=== PATIENT | male | born 1945 | race Caucasian/White ===

== ENCOUNTER 2019-10-17 11:07 | Outpatient (CLI) | payer MEDICARE, SELFPAY ==
--- NOTE | ~2019-10-17 | CT_ITS ---
EXAMINATION: CT chest wo con DATE: 10/17/2019 11:54 INDICATION: Solitary pulmonary nodule TECHNIQUE: Computed tomography (CT) of the chest was performed without intravenous contrast. The dose -length product (DLP) was 244.02 mGy-cm. Automated exposure control and iterative reconstruction tech nique were employed. COMPARISON: 03/02/2019, 02/15/2019, 09/29/2018 FINDINGS: There is a stable 1.5 x 1.0 cm nodule of the left lung base which did not demonstrate FDG u ptake on the comparison PET/CT. Small stable nodules in the right lung apex are consistent with scarr ing and old granulomatous disease. There is mild emphysema. No pleural effusion or pneumothorax is id entified. A stable area of scarring is noted inferiorly in the right upper lobe. The lungs are free o f focal airspace opacities. No pathologically enlarged thoracic lymph nodes are identified. The heart size is normal. Coronary artery atherosclerosis is noted. There is mild bilateral gynecomastia. Ther e is moderate thoracic spondylosis. IMPRESSION: 1. Left lower lobe nodule without significant change, benign by biopsy. Reviewed, dictated and finalized at location B.
== END 2019-10-17 11:08 | disposition home or self-care (01) ==
PROVIDERS: PCP Family Medicine; Visit Provider Nurse Practitioner Family
DX: R91.1 Solitary pulmonary nodule (principal)
CPT/HCPCS: 71250

== ENCOUNTER 2019-12-21 02:10 | Outpatient (CLI) | payer MEDICARE, SELFPAY ==
[2019-12-21 19:52] LABS: SARS-CoV-2 RNA PCR Negative
== END 2019-12-21 02:11 | disposition home or self-care (01) ==
LOC: ANHCOVIDDT 02:10
PROVIDERS: PCP Family Medicine; Visit Provider Internal Medicine Gastroenterology
DX: Z01.812 Encounter for preprocedural laboratory examination (principal); Z20.828 Contact with and (suspected) exposure to other viral communicable diseases
CPT/HCPCS: 87635; C9803; U0003

== ENCOUNTER 2019-12-24 00:24 | Day surgery (SDC) | payer MEDICARE, SELFPAY ==
[2019-12-18 15:59] VITALS: BMI 26.4
[2019-12-24 11:52] VITALS: BP 133/84; PULSE 81; RESP 17; TEMP 36.7; O2SAT 97; BMI 25.0
[2019-12-24] MEDS: LACTATED RINGERS 1,000 ML 150 ML IV CONT (12:07)
--- NOTE | 2019-12-24 12:25 | WPDANESEPPF ---
Anes - Initial Pre Proc Eval Procedure: Operation Date: 12/24/19 13:00 Proposed Procedures p Screening Colonoscopy - Pete Rubi DO Date/Time: 12/24/19 12:25 Surgeon: Pete Rubi DO Pre Op Diagnosis: neoplasm screening Patient Data Age: 74 Gender: M Height: 5 ft 8 in Weight: 74.7 kg Last Vital Signs Temp 98.1 F 12/24/19 11:52 Pulse 81 12/24/19 11:52 Resp 17 12/24/19 11:52 BP 133/84 12/24/19 11:52 Pulse Ox 97 12/24/19 11:52 Allergies Allergy/AdvReac Type Severity Reaction Status Date / Time sesame seed Allergy Severe Anaphylaxis Verified 12/24/19 11:47 Sulfa (Sulfonamide Allergy Severe Anaphylactic Verified 12/24/19 11:47 Antibiotics) Shock tobramycin Allergy Severe Rash Verified 12/24/19 11:47 Home Medications Medication Instructions Recorded Confirmed Type aspirin 81 mg tablet,delayed 81 mg PO HS 01/26/19 12/24/19 History release famotidine 20 mg tablet 20 mg PO DAILY 01/26/19 12/24/19 History gabapentin 300 mg capsule 300 mg PO DAILY PRN 01/26/19 12/24/19 History Artificial Tears (cmc) 1 drp OPHTHALMIC (EYE) 4-6XD PRN 03/02/19 12/24/19 History fluorometholone 1 drp OPHTHALMIC (EYE) DAILY PRN 03/02/19 12/24/19 History zolpidem 10 mg tablet 10 mg PO HS PRN #90 tablet 03/26/19 12/24/19 Rx atorvastatin 40 mg PO HS 12/18/19 12/24/19 History folic acid 1 mg PO DAILY 12/18/19 12/24/19 History losartan 50 mg PO DAILY 12/18/19 12/24/19 History loratadine [Claritin] 10 mg PO PRN PRN 12/24/19 12/24/19 History olopatadine [Pazeo] 0.7 drp OPHTHALMIC (EYE) PRN PRN 12/24/19 12/24/19 History prednisone 5 mg PO PRN PRN 12/24/19 12/24/19 History Patient hx anesthesia problems: none Family hx anesthesia problems: none PMFSH Past Medical History Medical History Arthritis History of pneumothorax 02/2018 - s/p lung nodule biopsy HTN (hypertension) Rectal polyp Shingles Surgical History Surgical History History of appendectomy 1965 History of cataract surgery b/l - 2009 History of tonsillectomy Family History Family History Sibling Prostate carcinoma Other Family history of coronary artery disease Social History Social History Smoking packs per day: 1 Smoking cigarettes per day: 20.0 Years smoked: 40 Smoking pack-years: 40.00 Smoking status: Former smoker Tobacco type: cigarettes Second hand tobacco smoke exposure: No Smoking end date: 02/08/04 Alcohol intake: current Drinks per week: 4 Substance use: never Substance use type: does not use Living arrangements: alone Gender identity (if verbalized by the patient): Male Spiritual care concerns: No Agree to blood products: Yes Anes - Eval Final PreProcedure Day of Procedure 12/24/19 12:25 Patient weight: normal Heart: regular rate and rhythm Lungs: clear to auscultation Airway: Mallampati scale class II Neurological: alert and oriented Last oral intake: >/= 8 hours ASA classification: III Emergent: no Anesthetic plan: proceed Anesthesia type and monitoring: general GIVS and standard monitoring Informed Consent: The patient's anesthetic plan and its attendant risks and benefits were discussed with the patient/family/POA. Questions were solicited and answers provided to the satisfaction of the patient/family/POA.
--- NOTE | 2019-12-24 13:44 | PM.IMHP ---
H&P: HPI History of Present Illness Date/Time: 12/24/19 13:44 Chief complaint: neoplasm screening Narrative: Reason for visit is colonoscopy. This very pleasant gentleman seen in consultation request of the primary physician. Impression: Screening and surveillance colonoscopy. The patient has a history adenomatous colon polyps. Pneumothorax. HTN. RA. Cerebral aneurysm. Polio. Recommendation: Colonoscopy. History: This very pleasant gentleman is here for screening and surveillance colonoscopy. He has history adenomatous colon polyps. GI review systems is negative. Physical examination: General: very pleasant patient in no acute distress. HEENT: Head was normocephalic sclerae is clear mouth without masses neck was supple. Heart: Rate rhythm regular without S3 or S4. Lungs: CTA. Abdomen: Soft with no guarding or rigidity. Bowel sounds were active. Neurologic: Cranial nerves 2 through 12 intact. No focal defects. No clonus. Musculoskeletal system: Revealed no joint tenderness or swelling no muscle atrophy. Extremities: Reveal no significant edema. Skin: Warm and dry with normal turgor. Mental status: intact. Patient is alert and oriented. Review of Systems Review of Systems: All systems reviewed & are unremarkable except as noted in HPI and below PMFSH Past Medical History Medical History Arthritis History of pneumothorax 02/2018 - s/p lung nodule biopsy HTN (hypertension) Rectal polyp Shingles Surgical History Surgical History History of appendectomy 1965 History of cataract surgery b/l - 2009 History of tonsillectomy Family History Family History Sibling Prostate carcinoma Other Family history of coronary artery disease Social History Social History Smoking packs per day: 1 Smoking cigarettes per day: 20.0 Years smoked: 40 Smoking pack-years: 40.00 Smoking status: Former smoker Tobacco type: cigarettes Second hand tobacco smoke exposure: No Smoking end date: 02/08/04 Alcohol intake: current Drinks per week: 4 Substance use: never Substance use type: does not use Living arrangements: alone Gender identity (if verbalized by the patient): Male Spiritual care concerns: No Agree to blood products: Yes Meds Home Medications and Allergies Home Medications Medication Instructions Recorded Confirmed Type aspirin 81 mg tablet,delayed 81 mg PO HS 01/26/19 12/24/19 History release famotidine 20 mg tablet 20 mg PO DAILY 01/26/19 12/24/19 History gabapentin 300 mg capsule 300 mg PO DAILY PRN 01/26/19 12/24/19 History Artificial Tears (cmc) 1 drp OPHTHALMIC (EYE) 4-6XD PRN 03/02/19 12/24/19 History fluorometholone 1 drp OPHTHALMIC (EYE) DAILY PRN 03/02/19 12/24/19 History zolpidem 10 mg tablet 10 mg PO HS PRN #90 tablet 03/26/19 12/24/19 Rx atorvastatin 40 mg PO HS 12/18/19 12/24/19 History folic acid 1 mg PO DAILY 12/18/19 12/24/19 History losartan 50 mg PO DAILY 12/18/19 12/24/19 History loratadine [Claritin] 10 mg PO PRN PRN 12/24/19 12/24/19 History olopatadine [Pazeo] 0.7 drp OPHTHALMIC (EYE) PRN PRN 12/24/19 12/24/19 History prednisone 5 mg PO PRN PRN 12/24/19 12/24/19 History Allergies Allergy/AdvReac Type Severity Reaction Status Date / Time sesame seed Allergy Severe Anaphylaxis Verified 12/24/19 11:47 Sulfa (Sulfonamide Allergy Severe Anaphylactic Verified 12/24/19 11:47 Antibiotics) Shock tobramycin Allergy Severe Rash Verified 12/24/19 11:47 Vital Signs Vital Signs - 24 hr 12/24/19 11:52 Temperature 36.7 C Pulse Rate 81 Respiratory Rate 17 Blood Pressure 133/84 Pulse Oximetry 97
[2019-12-24 14:09] VITALS: BP 99/64; PULSE 65; RESP 17; O2SAT 97
[2019-12-24 14:19] VITALS: BP 133/80; PULSE 85; RESP 18; O2SAT 100
[2019-12-24 14:29] VITALS: BP 142/83; PULSE 71; RESP 21; O2SAT 100
== END 2019-12-24 14:41 | disposition home or self-care (01) ==
PROVIDERS: PCP Family Medicine; Visit Provider Internal Medicine Gastroenterology
PROC: 0DJD8ZZ Inspection of Lower Intestinal Tract, Via Natural or Artificial Opening Endoscopic (ICD-10-PCS; CPT 45378; principal; 2019-12-24 13:00)
DX: Z12.11 Encounter for screening for malignant neoplasm of colon (principal); K57.30 Diverticulosis of large intestine without perforation or abscess without bleeding; K64.8 Other hemorrhoids; Z86.010 Personal history of colon polyps; I10 Essential (primary) hypertension; Z79.82 Long term (current) use of aspirin; Z87.891 Personal history of nicotine dependence; M06.9 Rheumatoid arthritis, unspecified; Z86.12 Personal history of poliomyelitis
CPT/HCPCS: G0105; J2704; J7120

== ENCOUNTER 2021-04-10 12:16 | Outpatient (CLI) | payer MEDICARE, SELFPAY ==
--- NOTE | ~2021-04-10 | XR_ITS ---
XR lumbar spine 2-3V 04/10/2021 12:35 Indication: Low back pain Procedure: 3 views lumbar spine Comparison: No prior studies for comparison. Findings: There is disc narrowing at all lumbar levels. There is grade 1 degenerative spondylolisthes is at L4-5 secondary to facet hypertrophy. There is moderate facet degenerative change at L3-4 throug h L5-S1. No acute fracture, subluxation or dislocation. There is atherosclerosis. Sacral foramen are symmetric. There is moderate osteoarthritis of the hips. Impression: 1: Moderate lumbar spondylosis. Reviewed, dictated and finalized at location A. 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
== END 2021-04-10 12:17 | disposition home or self-care (01) ==
LOC: ANHIMG 12:20
PROVIDERS: PCP Family Medicine; Visit Provider Family Medicine
DX: M47.896 Other spondylosis, lumbar region (principal)
CPT/HCPCS: 72100

== ENCOUNTER → 2021-12-30 11:37 | Outpatient (CLI) | payer MEDICARE, SELFPAY ==
--- NOTE | ~2021-12-30 | XR_ITS ---
EXAM: XR femur LT min 2V DATE: 12/30/2021 11:49 HISTORY: M79.652 - Pain in left thigh . COMPARISON: None available. FINDINGS: Normal mineralization. No fracture or dislocation. No lytic or blastic lesion. Moderate le ft hip osteoarthritis. Mild left knee osteoarthritis. No erosion or periosteal change. Scattered vasc ular calcifications. IMPRESSION: No acute osseous finding the left thigh. Reviewed, dictated and finalized at location K. TROTYPE MOLDER
== END ==
PROVIDERS: PCP Family Medicine; Visit Provider Family Medicine
DX: M79.652 Pain in left thigh (principal); S79.922A Unspecified injury of left thigh, initial encounter
CPT/HCPCS: 73552

== ENCOUNTER 2022-10-27 10:22 | Outpatient (CLI) | payer MEDICARE, SELFPAY ==
[2022-10-27 11:44] LABS: Basophils Absolute Auto 0.1 K/mm3 (0.0-0.1); Basophils Percent Auto 1.2 % (0.2-1.2); Eosinophils Absolute Auto 0.5 K/mm3 (0-0.3); Eosinophils Percent Auto 5.9 % (0-4.4); Hematocrit 46.2 % (42.0-52.0); Hemoglobin 15.6 g/dL (14.0-18.0); Immature Granulocyte Absolute 0.02 K/mm3 (0.00-0.031); Immature Granulocyte Percent A 0.3 % (0-0.5); Lymphocytes Absolute Auto 1.42 K/mm3 (0.9-3.2); Lymphocytes Percent Auto 18.2 % (18.3-44.2); Mean Corpuscular HGB Conc 33.8 g/dl (32-36); Mean Corpuscular Hemoglobin 31.4 pg (26-34); Mean Platelet Volume 9.5 fl (7.4-10.4); Monocytes Absolute Auto 0.7 K/mm3 (0.1-0.6); Monocytes Percent Auto 9.1 % (2.6-8.5); Neutrophils Absolute Auto 5.1 K/mm3 (1.3-6.7); Neutrophils Percent Auto 65.3 % (45.5-73.1); Platelet Count Result 159 k/mm3 (150-375); Red Blood Count 4.97 M/mm3 (4.6-6.20); Red Cell Distribution Width 13.6 % (11.5-14.5); White Blood Count 7.8 K/mm3 (4.5-10.0)
[2022-10-27 11:48] LABS: Alanine Aminotransferase 23 U/L (6-50); Albumin Level 3.8 g/dL (3.5-5.1); Alkaline Phosphatase 81 U/L (38-126); Anion Gap 0 mmol/L (8-16); Aspartate Amino Transferase 37 U/L (17-59); Bilirubin,Total 0.9 mg/dL (0.2-1.3); Blood Urea Nitrogen 22 mg/dL (9-20); Calcium 9.3 mg/dL (8.4-10.2); Carbon Dioxide 34 mmol/L (22-30); Chloride 102 mmol/L (98-107); Cholesterol 130 mg/dL (0-200); Estimated Glomerular Filt Rate > 60; Glucose 91 mg/dL (65-110); HDL Direct 30 mg/dL; Sodium 136 mmol/L (137-145); Triglycerides 152 mg/dL (<150)
[2022-10-27 12:07] LABS: LDL Cholesterol Direct 68 mg/dL
[2022-10-27 13:23] LABS: Hemoglobin A1C 5.2 % (<5.7)
[2022-10-27 16:34] LABS: Vitamin D 25 Hydroxy 62.8 ng/mL
== END 2022-10-27 10:23 | disposition home or self-care (01) ==
PROVIDERS: PCP Family Medicine; Visit Provider Nurse Practitioner Family
DX: E53.8 Deficiency of other specified B group vitamins (principal); I10 Essential (primary) hypertension; Z13.1 Encounter for screening for diabetes mellitus; Z13.21 Encounter for screening for nutritional disorder; Z13.220 Encounter for screening for lipoid disorders; Z13.29 Encounter for screening for other suspected endocrine disorder
CPT/HCPCS: 36415; 80053; 80061; 82306; 82607; 83036; 84443; 85025

== ENCOUNTER 2022-11-23 00:42 | Day surgery (SDC) | payer MEDICARE, SELFPAY ==
[2022-11-11 10:56] VITALS: BMI 27.0
[2022-11-23 09:33] VITALS: BP 150/84; PULSE 76; RESP 16; TEMP 36.1; O2SAT 96; BMI 26.5
[2022-11-23] MEDS: LACTATED RINGERS 1,000 ML 150 ML IV CONT (09:43)
--- NOTE | 2022-11-23 09:51 | WPDHPUPDATE1 ---
History and Physical Update Update Date/Time: 11/23/22 09:51 History and Physical has been reviewed, including an updated exam of the patient. There are NO changes in the patient's condition. Risks, benefits, and alternatives have been discussed and questions answered. Patient agrees to proceed with procedure.
[2022-11-23 10:09] VITALS: BP 111/69; PULSE 60; RESP 14; O2SAT 97
[2022-11-23 10:19] VITALS: BP 129/75; PULSE 69; RESP 22; O2SAT 98
[2022-11-23 10:29] VITALS: BP 132/83; PULSE 67; RESP 16; O2SAT 100
== END 2022-11-23 10:53 | disposition home or self-care (01) ==
PROVIDERS: PCP Family Medicine; Visit Provider Internal Medicine Gastroenterology
PROC: 0DJ08ZZ Inspection of Upper Intestinal Tract, Via Natural or Artificial Opening Endoscopic (ICD-10-PCS; CPT 43235; principal; 2022-11-23 10:45)
DX: K22.2 Esophageal obstruction (principal); K29.70 Gastritis, unspecified, without bleeding; K21.9 Gastro-esophageal reflux disease without esophagitis; I10 Essential (primary) hypertension; E78.5 Hyperlipidemia, unspecified; M06.9 Rheumatoid arthritis, unspecified; Z87.891 Personal history of nicotine dependence; Z79.82 Long term (current) use of aspirin
CPT/HCPCS: 43249; 43239; 88305; C1726; J2704; J7120

== ENCOUNTER 2023-03-30 14:03 | Emergency (ER) | payer MEDICARE, SELFPAY ==
[2023-03-30 14:09] VITALS: BP 133/82; PULSE 74; RESP 16; TEMP 36.5; O2SAT 97
--- NOTE | 2023-03-30 14:20 | ED.SKABFB ---
HPI - Skin/Abscess/Foreign Bdy General Chief complaint: Extremity Problem,Nontraumatic Stated complaint: R THUMB PAIN/SWELLING Time Seen by Provider: 03/30/23 14:21 Source: patient Mode of arrival: ambulatory Limitations: no limitations History of Present Illness HPI narrative: [age] year male presents with complaint redness, swelling and warmth to distal aspect right thumb. Range of motion and distal neurovascularly intact. Patient reports doing woodworking several days ago and a piece wood under his right thumbnail. States that he was able to remove it and had complications or pain afterwards. Last night noticed pain and swelling, worse today. Patient concern for infection. All systems reviewed and negative except as noted. Related Data Home Medications Medication Instructions Recorded Confirmed aspirin 81 mg tablet,delayed 81 mg PO HS 01/26/19 03/30/23 release famotidine 20 mg tablet 20 mg PO DAILY 01/26/19 03/30/23 carboxymethylcellulose sodium 1 % 1 drp ophthalmic (eye) 4-6XD PRN 03/02/19 03/30/23 eye drops (Artificial Tears Dry Eye(S) (carboxymethylcellulose)) olopatadine 0.1 % eye drops 1 drp ophthalmic (eye) BID PRN 02/28/20 03/30/23 (Pataday Twice Daily Relief) other fluticasone propionate 50 2 spray intranasal DAILY 04/01/20 03/30/23 mcg/actuation nasal spray,suspension (Flonase Allergy Relief) losartan 100 mg tablet 100 mg PO DAILY 04/01/20 03/30/23 hydrochlorothiazide 12.5 mg capsule 12.5 mg PO DAILY 09/29/20 03/30/23 loteprednol etabonate 0.38 % eye 1 drp EACH EYE DAILY 09/29/20 03/30/23 gel drops (Lotemax SM) fexofenadine 60 mg tablet (Rayne 60 mg PO DAILY 04/06/21 03/30/23 Allergy) methotrexate sodium 2.5 mg tablet 7.5 mg PO WEEKLY 04/06/21 03/30/23 rosuvastatin 20 mg tablet 20 mg PO DAILY 10/13/22 03/30/23 Allergies Allergy/AdvReac Type Severity Reaction Status Date / Time sesame seed Allergy Severe Anaphylaxis Verified 03/30/23 14:15 Sulfa (Sulfonamide Allergy Severe Anaphylactic Verified 03/30/23 14:15 Antibiotics) Shock tobramycin Allergy Severe Rash Verified 03/30/23 14:15 Review of Systems Review of Systems: CONSTITUTIONAL: Denies fever, chills, or sweats. EYES: Denies visual changes, redness, or discharge. ENT: Denies rhinorrhea, congestion, sore throat, or otalgia. CARDIOVASCULAR: Denies chest pain, palpitations, or edema. RESPIRATORY: Denies cough or dyspnea. GASTROINTESTINAL: Denies abdominal pain, nausea, vomiting, or diarrhea. GENITOURINARY: Denies dysuria or hematuria. SKIN: Reports redness swelling and pain to right thumb. MUSCULOSKELETAL: Denies back pain, joint pain, or myalgia. NEUROLOGIC: Denies headache, numbness, or weakness. PSYCHIATRIC: Denies anxiety or depression. All other systems reviewed are negative, except as documented in HPI. [facility] Past Medical History Medical History Adenomatous colon polyp Blepharochalasis of eyelid of both eyes Cerebral aneurysm Chronic back pain Environmental allergies Essential (primary) hypertension Food sticks on swallowing GERD without esophagitis High coronary artery calcium score History of pneumothorax (02/2019) 02/2018 - s/p lung nodule biopsy Insomnia Pneumothorax on left Post herpetic neuralgia Pulmonary nodule Rheumatoid arthritis of unspecified site with involvement of other organs and systems Shingles Surgical History Surgical History History of appendectomy (~1965) 1964 History of cataract surgery (~2009) b/l - 2009 History of tonsillectomy (~1950) Family History Family History Sibling Prostate carcinoma Other Family history of coronary artery disease Social History Social History Social History: Caffeine-tea/soda daily Smoking packs per day: 1
== END 2023-03-30 14:22 | disposition home or self-care (01) ==
PROVIDERS: Emergency Provider Nurse Practitioner Family; PCP Family Medicine
DX: L03.011 Cellulitis of right finger (principal); Z87.891 Personal history of nicotine dependence; I10 Essential (primary) hypertension; K21.9 Gastro-esophageal reflux disease without esophagitis; M06.9 Rheumatoid arthritis, unspecified; Z79.82 Long term (current) use of aspirin
CPT/HCPCS: 99213; G0463

== ENCOUNTER 2023-05-05 11:41 | Outpatient (CLI) | payer MEDICARE, SELFPAY ==
--- NOTE | ~2023-05-05 | XR_ITS ---
XR cervical spine 4-5V 05/05/2023 11:56 Indication: Neck pain right shoulder pain Procedure: 4 view cervical spine Comparison: No prior studies for comparison. Findings: There is levoscoliosis. There is severe multilevel facet and uncinate hypertrophy. Lung api johnny are normal. There is degenerative anterolisthesis at C3-4, C4-5 and C5-6. No prevertebral soft ti ssue swelling. No acute fractures identified. Impression: 1: Severe cervical spondylosis. Reviewed, dictated and finalized at location L. Impression: 1: Severe cervical spondylosis.
--- NOTE | ~2023-05-05 | XR_ITS ---
XR shoulder RT min 2V 05/05/2023 11:56 Indication: Right shoulder pain Procedure: 4 views right shoulder Comparison: 06/13/2015 Findings: There is moderate polyarticular osteoarthritis of the right shoulder. Loose bodies are pres ent adjacent to the acromioclavicular and glenohumeral joints. No acute fracture or traumatic malalig nment. Normal mineralization. No soft tissue abnormality. Impression: 1: Moderate polyarticular osteoarthritis. Reviewed, dictated and finalized at location L. Impression: 1: Moderate polyarticular osteoarthritis.
== END 2023-05-05 11:42 ==
PROVIDERS: PCP Family Medicine; Visit Provider Family Medicine
DX: M19.011 Primary osteoarthritis, right shoulder (principal); M43.02 Spondylolysis, cervical region
CPT/HCPCS: 72050; 73030

== ENCOUNTER 2023-09-02 12:25 | Outpatient (CLI) | payer MEDICARE, SELFPAY ==
--- NOTE | ~2023-09-02 | US_ITS ---
EXAMINATION:US venous doppler LE RT INDICATION:Right leg pain TECHNIQUE: Multiple grayscale, color flow and Doppler images of the right lower extremity deep venous systems were obtained and reviewed. COMPARISON:No prior studies for comparison. FINDINGS: The common femoral, superficial femoral and popliteal veins demonstrate normal respiratory variation, augmentation and compressibility. Color flow is also seen within the posterior tibial, pe roneal, greater saphenous and profunda veins. IMPRESSION: 1: No lower extremity deep venous thrombosis. Reviewed, dictated and finalized at location B.
== END 2023-09-02 12:26 | disposition home or self-care (01) ==
LOC: ANHIMG 12:29
PROVIDERS: PCP Family Medicine; Visit Provider Nurse Practitioner Family
DX: M79.661 Pain in right lower leg (principal)
CPT/HCPCS: 93971

== ENCOUNTER 2023-10-21 08:38 | Outpatient (CLI) | payer MEDICARE, SELFPAY ==
--- NOTE | ~2023-10-21 | CT_ITS ---
EXAMINATION: CT abdomen pelvis wo/w con DATE: 10/21/2023 09:49 INDICATION: Hematuria TECHNIQUE: Computed tomography (CT) of the abdomen and pelvis was performed without intravenous contr ast. CT of the abdomen and pelvis was then performed with a total of 130 mL Omnipaque-350 intravenous contrast using a double-bolus technique for simultaneous opacification of the renal parenchyma and r enal collecting system. The dose-length product was 976.16 mGy-cm. COMPARISON: None FINDINGS: Lower lungs are clear. Heart size is normal. Atherosclerotic coronary artery calcifications. No peric ardial or pleural effusion. Liver, gallbladder, spleen, pancreas and bilateral adrenal glands are nor mal. There are bilateral low-attenuation subcentimeter renal cysts. There is a 9 mm intermediate atte nuation lesion in the mid right kidney which appears slightly higher attenuation in the surrounding k idney on the precontrast images suggesting a proteinaceous/hemorrhagic cyst but too small to definiti vely characterize. No urolithiasis. No urothelial irregularities identified at the bilateral renal co llecting systems or ureters which are opacified in their entirety with the exception of the decompres sed distal most right ureter. Prostatomegaly which impresses upon the base of the otherwise normal bl adder. There is moderate colonic diverticulosis with a sigmoid predominance. There is no adjacent in flammatory change to suggest diverticulitis. No bowel obstruction. No free intraperitoneal gas or fl uid. No pathologically enlarged abdominal or pelvic lymphadenopathy. There is calcified atheroscleros is of the aorta and many of the other arteries. Bilateral small fat-containing inguinal hernias. Mode rate lumbar spondylosis. IMPRESSION: 1. 9 mm indeterminate soft tissue density lesion in the right kidney which appears relatively hyperde nse to surrounding kidney on precontrast imaging suggesting a proteinaceous/hemorrhagic cyst but too small to definitively characterize and could not absolutely exclude solid neoplasm. Consider follow-u p pre and postcontrast MRI. 2. No urolithiasis. 3. Moderate sigmoid predominant diverticulosis. 4. Prostatomegaly. Reviewed, dictated and finalized at location B. IMPRESSION: 1. 9 mm indeterminate soft tissue density lesion in the right kidney which appe ars relatively hyperdense to surrounding kidney on precontrast imaging suggesti ng a proteinaceous/hemorrhagic cyst but too small to definitively characterize and could not absolutely exclude solid neoplasm. Consider follow-up pre and pos tcontrast MRI. 2. No urolithiasis. 3. Moderate sigmoid predominant diverticulosis. 4. Prostatomegaly.
[2023-10-21 09:29] LABS: Estimated Glomerular Filt Rate > 60
== END 2023-10-21 08:39 | disposition home or self-care (01) ==
PROVIDERS: PCP Family Medicine; Visit Provider Nurse Practitioner Family
DX: R31.29 Other microscopic hematuria (principal); K57.30 Diverticulosis of large intestine without perforation or abscess without bleeding; N40.0 Benign prostatic hyperplasia without lower urinary tract symptoms
CPT/HCPCS: 74178; Q9967

== ENCOUNTER 2024-05-11 13:41 | Outpatient (CLI) | payer MEDICARE, SELFPAY ==
--- NOTE | ~2024-05-11 | MR_ITS ---
EXAMINATION: MR abdomen wo/w con DATE: 05/11/2024 14:56 INDICATION: Kidney lesion TECHNIQUE: Magnetic resonance imaging (MRI) of the abdomen was performed without and with 16 mL Multi edison intravenous contrast. Sequences included coronal T2-weighted SS-FSE, coronal and axial FS 2D-F IESTA, axial STIR FSE, axial T2-weighted SS-FSE, axial T2-weighted FS SS-FSE, axial diffusion-weighte d SE, axial dual-echo T1-weighted FSPGR, and axial and coronal T1-weighted LAVA. Postcontrast axial T 1-weighted LAVA images were obtained in a time course. Postcontrast coronal T1-weighted LAVA images w ere obtained. COMPARISON: CT dated 10/21/2023 FINDINGS: Heart size is normal. No pericardial or pleural effusion. There are couple subcentimeter T2 hyperinte nse nonenhancing cysts in segment 2A of the liver. Gallbladder, spleen, pancreas and bilateral adrena l glands are normal. There are bilateral simple appearing T2 hyperintense nonenhancing renal cysts, t he largest on the right measuring 9 mm. There is an additional 9 mm T1 hypointense, T2 hypointense no nenhancing complex proteinaceous/hemorrhagic cyst in the right kidney which corresponds to the indete rminate soft tissue density lesion on prior CT. Visualized portions of the bowels are normal. No obst ruction. No pathologically enlarged abdominal or upper pelvic lymphadenopathy. Mild S-shaped curvatur e of the lumbar spine with moderate to severe spondylosis. IMPRESSION: 1. Bilateral renal cysts including a 9 mm complex proteinaceous/hemorrhagic cyst the right kidney whi ch corresponds to the lesion of concern on prior CT. Reviewed, dictated and finalized at location A. IMPRESSION: 1. Bilateral renal cysts including a 9 mm complex proteinaceous/hemorrhagic cys t the right kidney which corresponds to the lesion of concern on prior CT.
--- OUTSIDE RECORDS SUMMARY | 2024-05-11 13:45 | XMS_ITS | Referral Summary ---
Author Organization [facility] [address] Address [address] [place] [address] Care Team Providers Care Engraving Press Operator Name Role Phone Lo Fong MD Primary Care Provider Lo Fong MD Unavailable Fransisco Hart MD Unavailable [phone] Allergies Active Allergy Reactions Criticality Noted Date Comments Sesame Oil Anaphylaxis,Hives,It aylin, Rash High 02/07/1995 Sesame Seed Anaphylaxis,Hives,It aylin, Rash High 02/07/1995 Sulfa (Sulfonamide Antibiotics) Unknown 10/12/2017 Tobramycin Unknown 10/12/2017 Medications methotrexate 2.5 mg tablet Take 3 tablets (7.5 mg total) by mouth once a week Active zolpidem (AMBIEN) 10 mg tabletIndications: Sleep-Onset Insomnia Take 1 tablet (10 mg total) by mouth nightly as needed for sleep Active gabapentin (NEURONTIN) 300 mg capsule TAKE ONE CAPSULE BY MOUTH THREE TIMES DAILY 90 capsule 11/08/19 18 Active Additional Information Patient taking differently: As needed, Reported on 09/19/2023 folic acid (FOLVITE) 1 mg tablet Take 1 tablet (1 mg total) by mouth daily Active fluticasone propionate (FLONASE) 50 mcg/actuation nasal spray Administer 1 spray into each nostril daily Active olopatadine (PATADAY) 0.2 % ophthalmic solutionIndication s:Allergic Conjunctivitis Administer 1 drop into both eyes daily Active fexofenadine (SYDNEY) 60 mg tablet 04/08/19 21 Active Lotemax SM 0.38 % drops,gel INSTILL 1 DROP INTO AFFECTED EYE ONCE A DAY 07/17/19 21 Active predniSONE (DELTASONE) 5 mg tablet Take 1 tablet (5 mg) by mouth continuously as needed 07/08/18 98 Active hydroCHLOROthiazid e (MICROZIDE) 12.5 mg capsule TAKE 1 CAPSULE BY MOUTH EVERY DAY IN THE MORNING 90 capsule 3 09/06/19 24 Active rosuvastatin (CRESTOR) 20 mg tabletIndications: Mixed hyperlipidemia TAKE 1 TABLET BY MOUTH EVERY DAY AT NIGHT 90 tablet 3 09/09/19 24 Active famotidine (PEPCID) 20 mg tablet Take 1 tablet (20 mg total) by mouth 2 (two) times a day 03/10/19 24 Active losartan (COZAAR) 100 mg tablet Take 1 tablet (100 mg total) by mouth daily 90 tablet 2 02/20/19 25 Active clopidogreL (PLAVIX) 75 mg tablet Take 1 tablet (75 mg total) by mouth daily 90 tablet 2 02/22/19 25 026 Active Active Problems Problem Noted Date Diagnosed Date Mixed hyperlipidemia 06/11/2021 Gastroesophageal reflux disease without esophagi tis 02/19/2019 Abnormal stress test 07/04/2018 Elevated coronary artery calcium score 9 Bradycardia 05/24/2018 HTN (hypertension), benign 05/24/2018 Rheumatoid arthritis 05/24/2018 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 Other chest pain 05/24/2018 Paresthesias/numbness 10/27/2017 Resolved Problems Problem Noted Date Diagnosed Date Resolved Date Dyslipidemia 05/24/2018 08/24/2022 Numbness and tingling in both hands 10/13/2017 10/27/2017 Numbness and tingling of both feet 10/13/2017 10/27/2017 Weakness of both hands 10/13/201710/15 Social History Tobacco Use Types Packs/Day Years Used Date Smoking Tobacco: Former Cigarettes 1 40 Q uit: 06/07/2004 Smokeless Tobacco: Never Comments:Quit in 2004 Alcohol Use Standard Drinks/Week Comments Yes 5 (1 standard drink = 0.6 oz pur e alcohol) PHQ-2 Answer Date Recorded PHQ-2 Score 0 09/28/2018 Sex and Gender Information Value Date Recorded Sex Assigned at Not on file Legal Sex Male 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 Gender Identity Not on file Sexual Orientation Straight 03/05/2020 1: 49 PM INDUSTRIAL MAINTENANCE REPAIRER HELPER Last Filed Vital Signs Vital Sign Reading Time Taken Comments Blood Pressure 120/70 09/19/2023 3:12 PM CDT Pulse 69 09/19/2023 3:12 PM CDT Temperature 36.3 C (97.3 F) 10/15/2017 7:44 AM CDT Respiratory Rate 18 11/19/2019 12:04 PM CDT Oxygen Saturation 96% 09/19/2023 3:12 PM CDT Inhaled Oxygen Concentration - - Weight 79.4 kg (175 lb) 09/19/2023 3:12 PM CDT Height 170.2 cm (5' 7 ) 09/19/2023 3:12 PM CDT Body Mass Index 27.41 09/19/2023 3:12 PM CDT Plan of Treatment Not on file Procedures Procedure Name Priority Date/Time Associated Diagnosis Comments HEPATITIS PANEL, ACUTE Routine 10/13/2017 7:09 AM CDT from Last 3 Months or Most Recently Relevant to Health Maintenance Results * Hepatitis panel, acute (10/13/2017 7:09 AM CDT) Hep A IgM Nonreactive Nonreactive [facility] Comment: Interpretive Data If test is reported as GRAYZONE, new sample should be drawn in two weeks for testing. Current interpretive data was last revised on 2016. Hep B core IgM Nonreactive Nonreactive [facility] Comment: Interpretive Data If test is reported as GRAYZONE, new sample should be drawn for testing. Current interpretive data was last revised on 2016. Hep C Ab Nonreactive Nonreactive [facility] Comment: Interpretive Data Positive and greyzone results should be confirmed by a molecular method. If positive or greyzone, a second separately collected sample should be submitted for Hepatitis C Virus RNA. Detection and Quantitation by Real-Time Reverse Sustainable Products Marketing Manager-PCR.Current Interpretive data was last revised on 2016. HepBsAg Nonreactive Nonreactive [facility] Blood specimen (specimen) 10/13/2017 7:09 AM CDT 10/13/2017 7:21 AM CDT Narrative [facility] - 10/13/2017 9:07 AM T us Fransisco Michel Jr., MD LAB [facility]CR[facility] IOLOGY - GENERAL ORDERABLES Edited Result - Final [facility] Department [place] [address] from Last 3 Months or Most Recently Relevant to Health Maintenance Insurance GOLD ADVANTAGE CON GOLD ADVANTAGE CON AETNA [facility] GOLD REF AETNA MEDICARE GOLD AETNA MEDICARE [facility] Advance Directives For more information, please contact: [phone] * Full Code (Latest Code Status on File) Date Activated Date Inactivated Comments 10/13/2017 2:44 AM 10/15/2017 1:51 PM Care Teams Engraving Press Operator Relationship Specialty Start Date End Date Lo Fong MD PCP - General 05/15/18 Lo Fogn MD Family Practice 05/15/18 Fransisco Hart MD [address] [place] [address] Referring Physician Neurology 10/15/17
--- OUTSIDE RECORDS SUMMARY | 2024-05-11 13:45 | XMS_ITS | Clinical Summary ---
Author Organization [facility] Main [place] Address [address] [place] [address] Care Team Providers Care Dry Cleaning Machine Operator Helper Name Role Phone Lo Fong MD Primary Care Provider Lo Fong MD Unavailable Fransisco Hart MD Unavailable [phone] Allergies Active Allergy Reactions Criticality Noted Date [...] 10/13/2017 10/27/2017 Weakness of both hands 10/13/201710/15 Surgical History Surgery Date Site/Laterality Comments APPENDECTOMY CATARACT EXTRACTION TONSILLECTOMY Medical History Medical History Date Comments Arthritis Hypertension Rheumatoid arthritis (HCC) Polio Hyperlipidemia Chest pain Cataract Infectious viral hepatitis Autoimmune disease Mixed conductive and sensorineural hearing loss GERD (gastroesophageal reflux disease) 2022 Family History Medical History Relation Name Comments Cancer Brother Zafar Tovar Pneumonia Father Arthritis Mother She Tovar Cancer Mother She Tovar Dementia Mother She Tovar Heart disease Mother She Tovar Memory loss Mother She Tovar Relation Name Status Comments Brother Zafar Tovar Father (Age 86) Mother She Tovar (Age 92) Social History Tobacco Use Types Packs/Day Years [...] on file Legal Sex Male 9:19 AM MANAGER TRANSPORTATION Gender Identity Not on file Sexual Orientation Straight 03/05/2020 1: 49 PM MANAGER TRANSPORTATION Obstetrics History Last Filed Vital Signs Vital Sign Reading [...] 09/19/2023 3:12 PM CDT Plan of Treatment Health Maintenance Due Date Last Done Comments Fall Risk Assessment 1945 DTaP/Tdap/Td Vaccine (1 - Tdap) 11/15/1955 Hepatitis B Screening 1962 Abdominal Aortic Aneurysm (A AA) Screen 2009 Well Visit 65+ 2009 Pneumococcal vaccine 65+ (2 of 2 - PPSV23) 01/31/2016 12/06/2015 Depression Screening 10/12/2018 10/12/2017, 10/13/19 18 Influenza Vaccine (#1) 2023 , 12/08/2017, 11/18/2016, Additional history exists Hepatitis C Screening Completed 10/13/2017 Zoster Vaccine Completed 12/20/2017, 07/02/2017 Procedures Procedure Name Priority Date/Time Associated Diagnosis Comments HEPATITIS PANEL, ACUTE Routine 10/13/2017 7:09 AM CDT from Last 3 Months or Most Recently Relevant to Health Maintenance Results * Hepatitis panel, acute (10/13/2017 7:09 AM CDT) Hep A IgM Nonreactive Nonreactive [facility] Comment: Interpretive Data If test is reported as GRAYZONE, new sample should be drawn in two weeks for testing. Current interpretive data was last revised on 2016. Hep B core IgM Nonreactive Nonreactive [facility] Comment: Interpretive Data If test is reported as GRAYZONE, new sample should be drawn for testing. Current interpretive data was last revised on 2016. Hep C Ab Nonreactive Nonreactive [facility] Comment: Interpretive Data Positive and greyzone results should be confirmed by a molecular method. If positive or greyzone, a second separately collected sample should be submitted for Hepatitis C Virus RNA. Detection and Quantitation by Real-Time Reverse Qualitative Field Project Manager-PCR.Current Interpretive data was last revised on 2016. HepBsAg Nonreactive Nonreactive [facility] Blood specimen (specimen) 10/13/2017 7:09 AM CDT 10/13/2017 7:21 AM CDT Narrative [facility] - 10/13/2017 9:07 AM CDT Fransisco Michel Jr., MD LAB MICROB IOLOGY - GENERAL ORDERABLES Edited Result - Final [facility] Department [place] [address] from Last 3 Months or Most Recently Relevant to Health Maintenance Insurance [facility] AETNA MEDICARE GOLD AETNA MEDICARE GOLD Advance Directives For more information, please contact: [phone] * Full Code (Latest Code Status on File) Date Activated Date Inactivated Comments 10/13/2017 2:44 AM 10/15/2017 1:51 PM Care Teams Dry Cleaning Machine Operator Helper Relationship Specialty Start Date End Date Lo Fong MD PCP - General 05/15/18 Lo Fong MD Family Practice 05/15/18 Fransisco Hart MD [address] [place] [address] Referring Physician Neurology 10/15/17
--- OUTSIDE RECORDS SUMMARY | 2024-05-11 13:45 | XMS_ITS | Continuity of Care Document ---
Author Organization [facility] Address [address] [place] [address] [place] [address] Phone Care Team Providers Care Pulp Press Tender Name Role Phone Shana Hsu Unavailable Unavailable Procedures Procedure Date Post-op Follow-up Visit Remove Cataract, Insert Lens Office/outpatient Visit, Est Echo Exam Of Eye Office/outpatient Visit, Est Office/outpatient Visit, Est Office/outpatient Visit, Est Eye Exam Established Pt Eye Exam Established Pt Advance Directives Directive Yes / No Effective Date File Name No Information Encounters Encounter Description Practice Location Reason(s) For Visit Diagnoses Date Provider Providers Copied on Encounter [facility], [address] [place] [address] [address], [place], [place], [id number], [place] tel:[phone] [facility] No Information 0-201 0 Aracelis Saldana. [address], [place], [address], [place]. tel:[phone] [facility], [address] [place] [address] [address], [place], [place], [id number], [place] tel:[phone] [facility] No Information 9-201 0 Aracelis Amezquita [address] , [address], [place], [address], [place]. tel:[phone] Office/outpat ient Visit, Est [facility], [address], [place], [place], [id number], [place] tel:[phone] [facility] No Information 9-201 0 Aracelis Saldana. [address] [facility] [place] , [address], [place], [address], [place]. tel:[phone] Referring Provider: Shana Angel, [address], [place], [place], [facility]. tel:[phone] Office/outpat ient Visit, [facility], [address] [place] [address] [address], [place], [place], [id number], [place] tel:[phone] [facility] No Information 8-201 0 Krishnasamy Jose. [facility] [address], [place], [place], [facility], [place]. tel:[phone] Office/outpat ient Visit, [facility], [address] [place] [address] [address], [place], [place], [id number], [place] tel:[phone] [facility] No Information Jul-3 0-201 0 Krishnasamy Jose. [facility] [place] [address], [place], [address], [place]. tel:[phone] Office/outpat ient Visit, [facility], [id number] [place] [address] [address], [place], [place], [id number], [place] tel:[phone] [facility] No Information 8-201 0 Krishnasamy Jose. [facility] [address], [place], [address], [place]. tel:[phone] [facility], [address] [place] [address] [address], [place], [place], [id number], [place] tel:[phone] [facility] No Information 7-200 8 Decker OD Pete. [address] [facility] , [address], [place], [address], [place]. tel:[phone] [facility], [address], [place], [place], [address], [place] tel:[phone] [facility] No Information 7-200 7 Decker OD Pete. [address] [facility] [place] , [address], [place], [address], [place]. tel:[phone] Family History Family Member Type Diagnosis Age At Onset No Information Payers Payer name Insurance type Covered alliance party ID Authoriza tion(s) No Information Social History Type Description Quantity Date Captured Comments Sex Male Smoking Status No Information Chief Complaint And Reason For Visit No Information Reason For Referral Reason For Referral No Information History Of Present Illness Encounter Date Complaint History Of Prese nt Illness No Information Functional Status Date Functional Assessmen t No Information Instructions Date Instruction Additional Infor mation No Information Assessments Type Assessment Date No Information Patient Care Teams Name Effective Dates (start - stop) Status Members No Information
--- OUTSIDE RECORDS SUMMARY | 2024-05-11 13:45 | XMS_ITS | Clinical Summary ---
Author Organization [facility] Administrative Offices Address [address] [place] [address] Care Team Providers Care Mine Patrol Name Role Phone Lo Fong MD Primary Care Provider Social History Tobacco Use Types Packs/Day Years Used Date Smoking Tobacco: Never Assessed Sex and Gender Information Value Date Recorded Sex Assigned at Not on file Legal Sex Male 11:00 AM CDT Gender Identity Not on file Sexual Orientation Not on file Plan of Treatment Health Maintenance Due Date Last Done Comments DTAP/TDAP/TD VACCINES (1 - Tdap) 11/15/1963 PNEUMOCOCCAL VACCINE 50+ YEARS (1 of 1 - PCV) 11/14/18 95 ZOSTER VACCINE (1 of 2) 1994 RSV VACCINE (60+ or ) (1 - 1-dose 75+ series) 11/15/2019 INFLUENZA VACCINE (#1) 2023 Care Teams Mine Patrol Relationship Specialty Start Date End Date Lo Fong MD [address] [place] [address] PCP - General Family Practice 05/11/18
--- OUTSIDE RECORDS SUMMARY | 2024-05-11 13:45 | XMS_ITS | Clinical Summary ---
Author Organization [facility] Address [address] [address] Phone Care Team Providers Care Slide Forming Machine Operator Name Role Phone Unavailable Primary Care Provider Unavailabl e Social History Tobacco Use Types Packs/Day Years Used Date Smoking Tobacco: Never Assessed Sex and Gender Information Value Date Recorded Sex Assigned at Not on file Legal Sex Male 9:40 PM CDT Gender Identity Not on file Sexual Orientation Not on file Plan of Treatment Health Maintenance Due Date Last Done Comments Hepatitis C Virus (HCV) Screening 1945 TdaP Immunization 1945 Pneumococcal Immunization (50+ years) (2 of 2 - PPSV23) 12/05/2016 12/06/2015 Respiratory Syncytial Virus (RSV) Immunization (Adult) (1 - 1-dose 75+ series) 11/15/2019 Influenza Immunization (#1) 10/09/202310/08, 12/01/2018, 12/08/2017, Additional history exists SARS-COV-2 Immunization ( season) 2023 03/07/2021, 09/27/2020, 04/17/2020, Additional history exists Pneumococcal Immunization Combined Discontinued 12/06/2015 Zoster Immunization Completed 12/20/2017, 8 Colonoscopy High Risk Discontinued 12/24/2019 Colonoscopy Discontinued 12/24/2019 Colorectal Cancer Screening Discontinued Cologuard Discontinued Hepatitis B Immunization Aged Out No longer eligible based on patient's age to complete this topic Immunochemical Fecal Occult Blood Discontinued Meningococcal Immunization (ACWY) Aged Out No longer eligible based on patient's age to complete this topic Rotavirus Immunization Aged Out No lo nger eligible based on patient's age to complete this topic Procedures Procedure Name Priority Date/Time Associated Diagnosis Comments HM COLONOSCOPY Routine 12/24/2019 from Last 3 Months or Most Recently Relevant to Health Maintenance Results * COLONOSCOPY (12/24/2019) Pete Rubi DO PROCEDURE/MINOR SURGICAL ORDERA BLES Final Result from Last 3 Months or Most Recently Relevant to Health Maintenance
== END 2024-05-11 13:42 | disposition home or self-care (01) ==
PROVIDERS: PCP Family Medicine; Visit Provider Urology
DX: N28.1 Cyst of kidney, acquired (principal)
CPT/HCPCS: 74183; A9577

== ENCOUNTER 2024-07-11 00:20 | Day surgery (SDC) | payer MEDICARE, SELFPAY ==
--- NOTE | 2024-06-29 14:26 | PC.NURSE ---
Spoke with patient regarding medication _Plavix_. _Patient_verbalizes understanding that the last dose is to be taken on _07/03/24_ and the Endoscopist will instruct them when to restart after the procedure.
[2024-07-03 16:02] VITALS: BMI 26.0
--- OUTSIDE RECORDS SUMMARY | 2024-07-11 00:23 | XMS_ITS | Clinical Summary ---
Author Organization [facility] Administrative Offices Address [address] [place] [address] Care Team Providers Care Digital Account Coordinator Name Role Phone oL Fong MD Primary Care Provider Social History [...] 11/15/2019 INFLUENZA VACCINE (#1) 2023 Care Teams Digital Account Coordinator Relationship Specialty Start Date End Date Lo Fong MD [address] [place] [address] PCP - General Family Practice 05/11/18
--- OUTSIDE RECORDS SUMMARY | 2024-07-11 00:23 | XMS_ITS | Referral Summary ---
Author Organization [facility] Main [place] Address [address] [place] [address] Care Team Providers Care Topology Teacher Name Role Phone Lo Fong MD Primary Care Provider Lo Fong MD Unavailable [phone] Fransisco Hart MD Unavailable [phone] Encounters Date Type Department Care Team Description 06/28/2024 Telephone [facility] Medical Group Cardiology [address] [place] [address] Kusum Fountain NP from Last 3 Months Allergies Active Allergy Reactions Criticality Noted Date [...] on file Legal Sex Male 9:19 AM SENIOR GEOLOGIST Gender Identity Not on file Sexual Orientation Straight 03/05/2020 1: 49 PM SENIOR GEOLOGIST Last Filed Vital Signs Vital Sign Reading [...] 3:12 PM CDT Height 170.2 cm (5' 7) 09/19/2023 3:12 PM CDT Body Mass Index 27.41 09/19/2023 3:12 PM CDT Plan of Treatment Not on file Procedures Procedure Name Priority Date/Time Associated Diagnosis Comments HEPATITIS PANEL, ACUTE Routine 10/13/2017 7:09 AM CDT from Last 3 Months or Most Recently Relevant to Health Maintenance Results * Hepatitis panel, acute (10/13/2017 7:09 AM CDT) Hep A IgM Nonreactive Nonreactive [facility] Comment: Interpretive Data If test is reported as GRAYZONE, new sample should be drawn in two weeks for testing. Current interpretive data was last revised on 2016. Hep B core IgM Nonreactive Nonreactive [facility] Comment: Interpretive Data If test is reported as GRAYZONE, new sample should be drawn for testing. Current interpretive data was last revised on 2016. Hep C Ab Nonreactive Nonreactive [facility] Comment: Interpretive Data Positive and greyzone results should be confirmed by a molecular method. If positive or greyzone, a second separately collected sample should be submitted for Hepatitis C Virus RNA. Detection and Quantitation by Real-Time Reverse Electricians Top Helper-PCR.Current Interpretive data was last revised on 2016. HepBsAg Nonreactive Nonreactive [facility] Blood specimen (specimen) 10/13/2017 7:09 AM CDT 10/13/2017 7:21 AM CDT Narrative [facility] - 10/13/2017 9:07 AM CDT Fransisco Michel Jr., MD LAB MICROB IOLOGY - GENERAL ORDERABLES Edited Result - Final [facility] [place] [address] from Last 3 Months or Most Recently Relevant to Health Maintenance Insurance [employer] ADVANTAGE CON AETNA [facility] REF AETNA MEDICARE [facility] AET MEDICARE [facility] Advance Directives For more information, please contact: [phone] * Full Code (Latest Code Status on File) Date Activated Date Inactivated Comments 10/13/2017 2:44 AM 10/15/2017 1:51 PM Care Teams Topology Teacher Relationship Specialty Start Date End Date Lo Fong MD PCP - General 05/15/18 Lo Fong MD Family Practice 05/15/18 Fransisco Hart MD [address] [place] [address] Referring Physician Neurology 10/15/17
--- OUTSIDE RECORDS SUMMARY | 2024-07-11 00:23 | XMS_ITS | Continuity of Care Document ---
Author Organization [facility] Address [address] [place] [address] [place] [address] Phone Care Team Providers Care Classroom Aide Name Role Phone Shana Hsu Unavailable Unavailable [...] Diagnoses Date Provider Providers Copied on Encounter [facility], [address] [place] [address] [address], [place], [place], [id number], [place] tel:[phone] [facility] No Information 0-201 0 Aracelis Saldana. [address], [place], [address], [place]. tel:[phone] [facility], [address] [place] [address] [address], [place], [place], [address], [place] tel:[phone] [facility] No Information 9-201 0 Aracelis Amezquita [address], [place], [address], [place]. tel:[phone] Office/outpat ient Visit, Est [facility], [address], [place], [place], [address], [place] tel:[phone] [facility] No Information 9-201 0 Aracelis Saldana. [address] [facility] [address] , [address], [place], [address], [place]. tel:[phone] Referring Provider: Shana Angel, [address], [place], [place], [facility]. tel:[phone] Office/outpat ient Visit, [facility], [address] [place] [address] [address], [place], [place], [address], [place] tel:[phone] [facility] No Information 8-201 0 Krishnasamy Jose. Critical access hospital[facility] [address], [place], [place], [facility], [place]. tel:[phone] Office/outpat ient Visit, [facility], [address] [place] [address] [address], [place], [place], [address], [place] tel:[phone] [facility] No Information Jul-3 0-201 0 Krishnasamy Jose. [facility] [place] [address], [place], [address], [place]. tel:[phone] Office/outpat ient Visit, [facility], [address] [place] [address] [address], [place], [place], [address], [place] tel:[phone] [facility] No Information 8-201 0 Krishnasamy Jose. Critical access hospital1 [facility] [address], [place], [address], [place]. tel:[phone] [facility], [address] [place] [address] [address], [place], [place], [address], [place] tel:[phone] [facility] No Information 7-200 8 Decker OD Pete. [address] [facility] [address] , [address], [place], [address], [place]. tel:[phone] [facility], [address], [place], [place], [address], [place] tel:[phone] [facility] No Information 7-200 7 Decker OD Pete. [address] [facility] [address] , [address], [place], [address], [place]. tel:[phone] Family History Family Member Type Diagnosis Age At Onset No Information Payers Payer name Insurance type Covered libertarian ID Authoriza tion(s) No Information Social History [...]
--- OUTSIDE RECORDS SUMMARY | 2024-07-11 00:23 | XMS_ITS | Clinical Summary ---
Author Organization [facility] Address [address] [place] [address] Care Team Providers Care Ring Stamper Name Role Phone Lo Fong MD Primary Care Provider Lo Fong MD Unavailable [phone] Fransisco Hart MD Unavailable [phone] Allergies Active Allergy Reactions Criticality Noted Date [...] 10/13/2017 10/27/2017 Weakness of both hands 10/13/201710/15 Encounters Date Type Department Care Team Description 06/28/2024 Telephone [facility] Medical Group Cardiology [address] [place] [address] Kusum Fountain NP from Last 3 Months Surgical History Surgery Date Site/Laterality Comments APPENDECTOMY [...] on file Legal Sex Male 9:19 AM PATIENT ACCESS DIRECTOR Gender Identity Not on file Sexual Orientation Straight 03/05/2020 1: 49 PM PATIENT ACCESS DIRECTOR Obstetrics History Last Filed Vital Signs Vital [...] Screening 10/12/2018 10/12/2017, 10/13/19 18 Influenza Vaccine (Season Ended) 2024 12/01/2018, 12/08/2017, 11/18/2016, Additional history exists Hepatitis C Screening Completed 10/13/2017 Zoster Vaccine Completed 12/20/2017, 07/02/2017 Procedures Procedure Name Priority Date/Time Associated Diagnosis Comments HEPATITIS PANEL, ACUTE Routine 10/13/2017 7:09 AM CDT from Last 3 Months or Most Recently Relevant to Health Maintenance Results * Hepatitis panel, acute (10/13/2017 7:09 AM CDT) Hep A IgM Nonreactive Nonreactive [facility] Comment: Interpretive Data If test is reported as GRAYZONE, new sample should be drawn in two weeks for testing. Current interpretive data was last revised on 2016. Hep B core IgM Nonreactive Nonreactive [facility] Comment: Interpretive Data If test is reported as GRAYZONE, new sample should be drawn for testing. Current interpretive data was last revised on 2016. Hep C Ab Nonreactive Nonreactive [facility] Comment: Interpretive Data Positive and greyzone results should be confirmed by a molecular method. If positive or greyzone, a second separately collected sample should be submitted for Hepatitis C Virus RNA. Detection and Quantitation by Real-Time Reverse [employer] Vault Installer-PCR.Current Interpretive data was last revised on 2016. HepBsAg Nonreactive Nonreactive [facility] Blood specimen (specimen) 10/13/2017 7:09 AM CDT 10/13/2017 7:21 AM CDT Narrative [facility] - 10/13/2017 9:07 AM CDT Fransisco Michel Jr., MD LAB MICROB IOLOGY - GENERAL ORDERABLES Edited Result - Final [facility] Department [place] [address] from Last 3 Months or Most Recently Relevant to Health Maintenance Insurance [facility] AETNA MEDICARE GOLD AETNA MEDICARE GOLD Advance Directives For more information, please contact: [phone] * Full Code (Latest Code Status on File) Date Activated Date Inactivated Comments 10/13/2017 2:44 AM 10/15/2017 1:51 PM Care Teams Ring Stamper Relationship Specialty Start Date End Date Lo Fong MD PCP - General 05/15/18 Lo Fong MD Family Practice 05/15/18 Fransisco Hart MD [address] [place] [address] Referring Physician Neurology 10/15/17
--- OUTSIDE RECORDS SUMMARY | 2024-07-11 00:23 | XMS_ITS | Clinical Summary ---
Author Organization [facility] Address [address] [address] Phone Care Team Providers Care Conference Organizer Name Role Phone Unavailable Primary Care Provider [...]
[2024-07-11 12:11] VITALS: BP 130/66; PULSE 71; RESP 16; TEMP 36.8; O2SAT 96
[2024-07-11] MEDS: LACTATED RINGERS 1,000 ML 150 ML IV CONT (12:19)
--- NOTE | 2024-07-11 12:45 | WPDANESEPPF ---
Anes - Initial Pre Proc Eval Procedure: Operation Date: 07/11/24 13:00 Proposed Procedures p Esophagogastroduodenoscopy - Ankur Geiger MD Date/Time: 07/11/24 12:45 Surgeon: Ankur Geiger MD Pre Op Diagnosis: Epigastric pain Patient Data Age: 78 Gender: M Height: 1.7 m Weight: 76.1 kg Last Vital Signs Temp 36.8 C 07/11/24 12:11 Pulse 71 07/11/24 12:11 Resp 16 07/11/24 12:11 BP 130/66 07/11/24 12:11 Pulse Ox 96 07/11/24 12:11 O2 Del Method Room Air 07/11/24 12:11 Allergies Allergy/AdvReac Type Severity Reaction Status Date / Time sesame seed Allergy Severe Anaphylaxis Verified 07/11/24 12:05 Sulfa (Sulfonamide Allergy Severe Anaphylactic Verified 07/11/24 12:05 Antibiotics) Shock tobramycin Allergy Severe Rash Verified 07/11/24 12:05 Home Medications ?Medication ?Instructions ?Recorded ?Confirmed ?Type carboxymethylcellulose sodium 1 % 1 drp ophthalmic (eye) 4-6XD PRN 03/02/19 07/11/24 History eye drops (Artificial Tears Dry Eye(S) (carboxymethylcellulose)) olopatadine 0.1 % eye drops 1 drp ophthalmic (eye) DAILY@1700 02/28/20 07/11/24 History (Pataday Twice Daily Relief) other losartan 100 mg tablet 100 mg PO DAILY 04/01/20 07/11/24 History hydrochlorothiazide 12.5 mg capsule 12.5 mg PO DAILY 09/29/20 07/11/24 History loteprednol etabonate 0.38 % eye 1 drp EACH EYE DAILY 09/29/20 07/11/24 History gel drops (Lotemax SM) methotrexate sodium 2.5 mg tablet 7.5 mg PO WEEKLY 04/06/21 07/11/24 History rosuvastatin 20 mg tablet 20 mg PO QHS 04/13/23 07/11/24 History zolpidem 10 mg tablet 10 mg PO QHS PRN insomnia #90 tabs 12/26/23 07/11/24 Rx folic acid 1 mg tablet 1 mg PO DAILY #90 tabs 01/19/24 07/11/24 Rx clopidogrel 75 mg tablet (Plavix) 75 mg PO DAILY #90 tabs 02/24/24 07/11/24 Rx omeprazole 40 mg capsule,delayed 40 mg PO DAILY #90 caps 03/05/24 07/11/24 Rx release famotidine 10 mg tablet 10 mg PO Q12H 04/17/24 07/11/24 History fexofenadine 180 mg tablet 180 mg PO DAILY #100 tabs 04/17/24 07/11/24 Rx (Rayne Allergy) fluticasone propionate 50 2 spray intranasal DAILY #16 grams 04/17/24 07/11/24 Rx mcg/actuation nasal spray,suspension (Flonase Allergy Relief) hydrocortisone acetate 25 mg See Rx Instructions .Route 04/17/24 07/03/24 Rx rectal suppository .COMPLEX #24 ea prednisone 5 mg tablet 5 mg PO DIRECTED PRN joint pain 04/17/24 07/11/24 History azelastine 137 mcg (0.1 %) nasal 1 spray intranasal Q12H #90 mL 07/04/24 07/11/24 Rx spray Patient hx anesthesia problems: none Family hx anesthesia problems: none Results Review: All pre-operative results and documents have been reviewed as part of the pre-operative evaluation. [facility] Past Medical History Medical History Prediabetes Right calf pain Food sticks on swallowing Blepharochalasis of eyelid of both eyes Chronic back pain Cerebral aneurysm 10/25- saccular aneurysm noted on CTA followed up with Neurology for 2 years and was told no further follow-up required Adenomatous colon polyp History of pneumothorax (02/2019) 02/2018 - s/p lung nodule biopsy Environmental allergies GERD without esophagitis High coronary artery calcium score Post herpetic neuralgia Rheumatoid arthritis of unspecified site with involvement of other organs and systems Pneumothorax on left Shingles Essential (primary) hypertension Insomnia Pulmonary nodule Surgical History Surgical History History of esophageal dilatation (~11/2022) History of appendectomy (~1964) 1965 History of tonsillectomy (~1950) History of cataract surgery (~2009) b/l - 2009 Family History Family History Sibling Prostate carcinoma Other Family history of coronary artery disease Social History Social History Social History: Caffeine-tea/soda daily Smoking packs per day: 0.75 Smoking cigarettes per day: 15.0 Years smoked: 40 Smoking pack-years: 30.00 Smoking status: Former smoker Tobacco type: cigarettes Second hand tobacco smoke exposure: No Smoking end date: 07/08/04 Alcohol intake: current Alcohol use details: rarely Substance use: never Substance use type: does not use Lack of Transportation: No Lack of Food: Never True Current Housing: I Have Housing Concerned About Future Housing: No Difficulty Paying Gas/Electric Bills: No Difficulty Paying for Meds: No Currently Unemployed: No Education: Master's Degree or Higher Difficulty w/ Childcare or Family Care: No Living arrangements: alone Gender identity (if verbalized by the patient): Male Spiritual care concerns: No Agree to blood products: Yes Anes - Eval Final PreProcedure Day of Procedure 07/11/24 12:45 Patient weight: overweight Heart: regular rate and rhythm Lungs: clear to auscultation Airway: Mallampati scale class II Neurological: alert and oriented Last oral intake: >/= 8 hours ASA classification: III Emergent: no Anesthetic plan: proceed Anesthesia type and monitoring: general GIVS and standard monitoring Results Review: All pre-operative results and documents have been reviewed as part of the pre-operative evaluation. Informed Consent: The patient's anesthetic plan and its attendant risks and benefits were discussed with the patient/family/POA. Questions were solicited and answers provided to the satisfaction of the patient/family/POA.
--- NOTE | 2024-07-11 13:12 | PM.IMHP ---
H&P: HPI History of Present Illness Date/Time: 07/11/24 13:12 Chief Complaint: GERD Narrative: the patient has been complaining of chronic heartburn, partially controlled with omeprazole. Of note, he had an EGD last year showing a Schatzki ring which was dilated with a balloon up to 20 mm. Review of Systems Review of Systems: All systems reviewed & are unremarkable except as noted in HPI and below PMFSH Past Medical History Medical History Prediabetes Right calf pain Food sticks on swallowing Blepharochalasis of eyelid of both eyes Chronic back pain Cerebral aneurysm 10/25- saccular aneurysm noted on CTA followed up with Neurology for 2 years and was told no further follow-up required Adenomatous colon polyp History of pneumothorax (02/2019) 02/2018 - s/p lung nodule biopsy Environmental allergies GERD without esophagitis High coronary artery calcium score Post herpetic neuralgia Rheumatoid arthritis of unspecified site with involvement of other organs and systems Pneumothorax on left Shingles Essential (primary) hypertension Insomnia Pulmonary nodule Surgical History Surgical History History of esophageal dilatation (~11/2022) History of appendectomy (~1964) 1965 History of tonsillectomy (~1950) History of cataract surgery (~2009) b/l - 2009 Family History Family History Sibling Prostate carcinoma Other Family history of coronary artery disease Social History Social History Social History: Caffeine-tea/soda daily Smoking packs per day: 0.75 Smoking cigarettes per day: 15.0 Years smoked: 40 Smoking pack-years: 30.00 Smoking status: Former smoker Tobacco type: cigarettes Second hand tobacco smoke exposure: No Smoking end date: 07/08/04 Alcohol intake: current Alcohol use details: rarely Substance use: never Substance use type: does not use Lack of Transportation: No Lack of Food: Never True Current Housing: I Have Housing Concerned About Future Housing: No Difficulty Paying Gas/Electric Bills: No Difficulty Paying for Meds: No Currently Unemployed: No Education: Master's Degree or Higher Difficulty w/ Childcare or Family Care: No Living arrangements: alone Gender identity (if verbalized by the patient): Male Spiritual care concerns: No Agree to blood products: Yes Meds Home Medications and Allergies Home Medications ?Medication ?Instructions ?Recorded ?Confirmed ?Type carboxymethylcellulose sodium 1 % 1 drp ophthalmic (eye) 4-6XD PRN 03/02/19 07/11/24 History eye drops (Artificial Tears Dry Eye(S) (carboxymethylcellulose)) olopatadine 0.1 % eye drops 1 drp ophthalmic (eye) DAILY@1700 02/28/20 07/11/24 History (Pataday Twice Daily Relief) other losartan 100 mg tablet 100 mg PO DAILY 04/01/20 07/11/24 History hydrochlorothiazide 12.5 mg capsule 12.5 mg PO DAILY 09/29/20 07/11/24 History loteprednol etabonate 0.38 % eye 1 drp EACH EYE DAILY 09/29/20 07/11/24 History gel drops (Lotemax SM) methotrexate sodium 2.5 mg tablet 7.5 mg PO WEEKLY 04/06/21 07/11/24 History rosuvastatin 20 mg tablet 20 mg PO QHS 04/13/23 07/11/24 History zolpidem 10 mg tablet 10 mg PO QHS PRN insomnia #90 tabs 12/26/23 07/11/24 Rx folic acid 1 mg tablet 1 mg PO DAILY #90 tabs 01/19/24 07/11/24 Rx clopidogrel 75 mg tablet (Plavix) 75 mg PO DAILY #90 tabs 02/24/24 07/11/24 Rx omeprazole 40 mg capsule,delayed 40 mg PO DAILY #90 caps 03/05/24 07/11/24 Rx release famotidine 10 mg tablet 10 mg PO Q12H 04/17/24 07/11/24 History fexofenadine 180 mg tablet 180 mg PO DAILY #100 tabs 04/17/24 07/11/24 Rx (Rayne Allergy) fluticasone propionate 50 2 spray intranasal DAILY #16 grams 04/17/24 07/11/24 Rx mcg/actuation nasal spray,suspension (Flonase Allergy Relief) hydrocortisone acetate 25 mg See Rx Instructions .Route 04/17/24 07/03/24 Rx rectal suppository .COMPLEX #24 ea prednisone 5 mg tablet 5 mg PO DIRECTED PRN joint pain 04/17/24 07/11/24 History azelastine 137 mcg (0.1 %) nasal 1 spray intranasal Q12H #90 mL 07/04/24 07/11/24 Rx spray Allergies Allergy/AdvReac Type Severity Reaction Status Date / Time sesame seed Allergy Severe Anaphylaxis Verified 07/11/24 12:05 Sulfa (Sulfonamide Allergy Severe Anaphylactic Verified 07/11/24 12:05 Antibiotics) Shock tobramycin Allergy Severe Rash Verified 07/11/24 12:05 Vital Signs Vital Signs - 24 hr 07/11/24 12:11 Temperature 98.2 F Pulse Rate 71 Respiratory Rate 16 Blood Pressure 130/66 Pulse Oximetry 96 Oxygen Delivery Room Air Exam Const: General: cooperative and healthy appearing Resp: Effort & Inspection: normal respiratory effort and able to speak in complete sentences Auscultation: clear to auscultation bilaterally Cardio: Rate: regular rate Rhythm: regular rhythm GI: Inspection: normal to inspection GI Palp: No No hepatosplenomegaly present Auscultation: normal bowel sounds Rectal Exam: deferred Skin: General skin exam: normal color Psych: Appearance: grossly normal Mental Status: mental status grossly normal Assessment and Plan Assessment and plan (1) GERD without esophagitis: Code(s): K21.9 - Gastro-esophageal reflux disease without esophagitis Status: Acute Assessment and Plan: The patient is deemed a good candidate for the procedure. Consent signed. Will proceed.
[2024-07-11] MEDS: BENZOCAINE (*SP) 60 ML SPRAY CAN (HURRICAINE) 1 SPRAY MUCOUS MEM (13:20)
[2024-07-11] MEDS: SIMETHICONE ORAL SUSPENSION 20 MG/0.3 ML 30 ML BOTTLE 0.6 ML IRRIGATION (13:22)
[2024-07-11 13:30] VITALS: BP 111/59; PULSE 63; RESP 16; O2SAT 95
[2024-07-11 13:40] VITALS: BP 111/70; PULSE 56; RESP 16; O2SAT 97
[2024-07-11 13:50] VITALS: BP 136/81; PULSE 64; RESP 20; O2SAT 98
== END 2024-07-11 14:11 | disposition home or self-care (01) ==
PROVIDERS: PCP Family Medicine; Referring Provider Family Medicine; Visit Provider Internal Medicine Gastroenterology
PROC: 0DJ08ZZ Inspection of Upper Intestinal Tract, Via Natural or Artificial Opening Endoscopic (ICD-10-PCS; CPT 43235; principal; 2024-07-11 13:00)
DX: K21.9 Gastro-esophageal reflux disease without esophagitis (principal); K29.30 Chronic superficial gastritis without bleeding; I10 Essential (primary) hypertension; R73.03 Prediabetes; G47.00 Insomnia, unspecified; G89.29 Other chronic pain; M54.9 Dorsalgia, unspecified; B02.22 Postherpetic trigeminal neuralgia; M05.60 Rheumatoid arthritis of unspecified site with involvement of other organs and systems; Z79.02 Long term (current) use of antithrombotics/antiplatelets; Z79.52 Long term (current) use of systemic steroids; Z98.890 Other specified postprocedural states; Z87.891 Personal history of nicotine dependence; Z86.0100 Personal history of colon polyps, unspecified; Z86.79 Personal history of other diseases of the circulatory system; Z80.42 Family history of malignant neoplasm of prostate; Z82.49 Family history of ischemic heart disease and other diseases of the circulatory system
CPT/HCPCS: 43235; J2003; J2704; J7120

== ENCOUNTER 2024-09-01 10:18 | Outpatient (CLI) | payer MEDICARE, SELFPAY ==
--- NOTE | ~2024-09-01 | CT_ITS ---
CT Scan of the Chest without Contrast: Clinical Indication: Pulmonary nodule Technique: Contiguous sections were acquired throughout the chest without intravenous contrast. Dose reduction technique was used on this scan by utilizing automated exposure control and iterative recon struction technique. The dose-length product (DLP) was 168.80 mGy-cm. COMPARISON: 10/17/2019 Findings: There is no evidence of any significant mediastinal, hilar or axillary lymphadenopathy. There extensi ve atherosclerotic calcifications of the aorta and coronary arteries. Small calcified right hilar lym ph nodes are present. There is no evidence of pleural or pericardial effusion. Stable mild biapical scarring. Stable scarring in the anterior, inferior right upper lobe. Previously noted left basilar pulmonary nodule is largely resolved. Images through the upper abdomen reveal no abnormalities. Impression: Previously noted left basilar pulmonary nodule is largely resolved. Reviewed, dictated and finalized at [facility]. Impression: Previously noted left basilar pulmonary nodule is largely resolved.
--- OUTSIDE RECORDS SUMMARY | 2024-09-01 10:21 | XMS_ITS | Clinical Summary ---
Author Organization [facility] Address [address] [place] [address] Care Team Providers Care Banking Paralegal Name Role Phone Lo Fong MD Primary [...] 1-dose 75+ series) 11/15/2019 INFLUENZA VACCINE (#1) 2024 Care Teams Banking Paralegal Relationship Specialty Start Date End Date Lo Fong MD [address] [place] [address] PCP - General Family Practice 05/11/18
--- OUTSIDE RECORDS SUMMARY | 2024-09-01 10:21 | XMS_ITS | Patient Health Record ---
Author Organization [facility] Address [address] [place], [place] [address] Care Team Providers Care Breaker Up Name Role Phone CAROLINA CORNELL Unavailable [phone] Lo Fong Unavailable Unavaila ble Reason For Referral No Information Plan Of Treatment No Information Insurance Providers Payer Name Payer Address Payer Phone Subscriber Number Group Number Insured Name Patient Relationship to Insured Coverage Start Date Coverage End Date [employer] [address] [place] [phone] [id number] HOA LYONS Self - patient is the insured
--- OUTSIDE RECORDS SUMMARY | 2024-09-01 10:21 | XMS_ITS | Clinical Summary ---
Author Organization [facility] Address [address] [address] Phone Care Team Providers Care Shell Sorter Name Role Phone Unavailable Primary Care Provider [...] (Adult) (1 - 1-dose 75+ series) 11/15/2019 SARS-COV-2 Immunization ( - season) 2023 03/07/2021, 09/27/2020, 04/17/2020, Additional history exists Influenza Immunization (#1) 10/08/202410/08, 12/01/2018, 12/08/2017, Additional history exists Pneumococcal Immunization Combined Discontinued 12/06/2015 Zoster Immunization Completed 12/20/2017, 8 Colonoscopy Discontinued 12/24/2019 Colorectal Cancer Screening Discontinued Cologuard Discontinued Hepatitis B Immunization Aged Out No longer eligible based on patient's age to complete this topic Human Papillomavirus (HPV) Immunization Aged Out No longer eligible based on patient's age to complete this topic Immunochemical Fecal Occult Blood Discontinued Meningococcal Immunization (ACWY) Aged Out No longer eligible based on patient's age to complete this topic Rotavirus Immunization Aged Out No lo nger eligible based on patient's age to complete this topic Procedures Procedure Name Priority Date/Time Associated Diagnosis Comments COLONOSCOPY Routine 12/24/2019 from Last 3 Months or Most Recently Relevant to Health Maintenance Results * COLONOSCOPY (12/24/2019) Pete Rubi DO PROCEDURE/MINOR SURGICAL ORDERA BLES Final Result from Last 3 Months or Most Recently Relevant to Health Maintenance
--- OUTSIDE RECORDS SUMMARY | 2024-09-01 10:21 | XMS_ITS | Referral Summary ---
Author Organization [facility] [place] Address [address] [place] [address] Care Team Providers Care Tablet Technician Name Role Phone Lo Fong MD Primary Care Provider Lo Fong MD Unavailable [phone] Fransisco Hart MD Unavailable [phone] Encounters Date Type Department Care Team Description 07/30/2024 2:00 PM CDT Office Visit [facility] Medical Group Cardiology [address] [place] [address] Kusum Fountain NP Elevated coronary artery calcium score (Primary Dx); Mixed hyperlipidemia; HTN (hypertension), benign 06/28/2024 Telephone [facility] Medical [facility] Cardiology [address] [place] [address] Kusum Fountain NP from Last 3 Months Allergies Active Allergy Reactions Criticality Noted Date Comments Sesame Oil Anaphylaxis,Hives,It aylin, Rash High 02/07/1995 Sesame Seed Anaphylaxis,Hives,It aylin, Rash High 02/07/1995 Sulfa (Sulfonamide Antibiotics) Unknown 10/12/2017 Tobramycin Unknown 10/12/2017 Medications methotrexate 2.5 mg tablet Take 3 tablets (7.5 mg total) by mouth once a week Active zolpidem (AMBIEN) 10 mg tabletIndications :Sleep-Onset Insomnia Take 1 tablet (10 mg total) by mouth nightly as needed for sleep Active folic acid (FOLVITE) 1 mg tablet Take 1 tablet (1 mg total) by mouth daily Active fluticasone propionate (FLONASE) 50 mcg/actuation nasal spray Administer 1 spray into each nostril daily Active olopatadine (PATADAY) 0.2 % ophthalmic solutionIndicatio ns:Allergic Conjunctivitis Administer 1 drop into both eyes daily Active fexofenadine (SYDNEY) 60 mg tablet 021 Active predniSONE (DELTASONE) 5 mg tablet Take 1 tablet (5 mg) by mouth continuously as needed 998 Active hydroCHLOROthiazi de (MICROZIDE) 12.5 mg capsule TAKE 1 CAPSULE BY MOUTH EVERY DAY IN THE MORNING 90 capsule 3 024 Active losartan (COZAAR) 100 mg tablet Take 1 tablet (100 mg total) by mouth daily 90 tablet 2 025 Active clopidogreL (PLAVIX) 75 mg tablet Take 1 tablet (75 mg total) by mouth daily 90 tablet 2 025 2025 Active azelastine (ASTELIN) 137 mcg (0.1 %) nasal spray 025 Active omeprazole (PriLOSEC) 40 mg capsule Take by mouth daily 025 Active loteprednol (LOTEMAX) 0.5 % ophthalmic suspension INSTILL ONE DROP INTO BOTH EYES TWICE A DAY NEEDED 025 Active rosuvastatin (CRESTOR) 20 mg tabletIndications :Mixed hyperlipidemia TAKE 1 TABLET BY MOUTH EVERY DAY AT NIGHT 90 tablet 3 025 Active rosuvastatin (CRESTOR) 20 mg tabletIndications :Mixed hyperlipidemia TAKE 1 TABLET BY MOUTH EVERY DAY AT NIGHT 90 tablet 3 024 2024 Discontinued Active Problems Problem Noted Date Diagnosed Date [...] 40 Q uit: 06/07/2004 Smokeless Tobacco: Never Tobacco Cessation:Counseling Given: Not Answered Comments:Quit in 2004 Alcohol Use Standard Drinks/Week Comments Yes 5 (1 standard drink = 0.6 oz pur e alcohol) PHQ-2 Answer Date Recorded PHQ-2 Score 0 09/28/2018 Sex and Gender Information Value Date Recorded Sex Assigned at Not on file Legal Sex Male 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 Gender Identity Not on file Sexual Orientation Straight 03/05/2020 1: 49 PM SUPERVISOR LIQUEFACTION Last Filed Vital Signs Vital Sign Reading Time Taken Comments Blood Pressure 116/64 07/30/2024 1:59 PM CDT Pulse 75 07/30/2024 1:59 PM CDT Temperature 36.3 C (97.3 F) 10/15/2017 7:44 AM CDT Respiratory Rate 18 11/19/2019 12:04 PM CDT Oxygen Saturation 94% 07/30/2024 1:59 PM CDT Inhaled Oxygen Concentration - - Weight 76.2 kg (168 lb) 07/30/2024 1:59 PM CDT Height 170.2 cm (5' 7) 07/30/2024 1:59 PM CDT Body Mass Index 26.31 07/30/2024 1:59 PM CDT Plan of Treatment Not on file Procedures Procedure Name Priority Date/Time Associated Diagnosis Comments HEPATITIS PANEL, ACUTE Routine 10/13/2017 7:09 AM CDT from Last 3 Months or Most Recently Relevant to Health Maintenance Results * Hepatitis panel, acute (10/13/2017 7:09 AM CDT) Hep A IgM Nonreactive Nonreactive [facility] Comment: Interpretive Data If test is reported as GRAYZONE, new sample should be drawn in two weeks for testing. Current interpretive data was last revised on 2016. Hep B core IgM Nonreactive Nonreactive [facility] Comment: Interpretive Data If test is reported as GRAYZONE, new sample should be drawn for testing. Current interpretive data was last revised on 2016. Hep C Ab Nonreactive Nonreactive [facility] Comment: Interpretive Data Positive and greyzone results should be confirmed by a molecular method. If positive or greyzone, a second separately collected sample should be submitted for Hepatitis C Virus RNA. Detection and Quantitation by Real-Time Reverse Fur Glazer-PCR.Current Interpretive data was last revised on 2016. HepBsAg Nonreactive Nonreactive [facility] Blood specimen (specimen) 10/13/2017 7:09 AM CDT 10/13/2017 7:21 AM CDT Narrative [facility] - 10/13/2017 9:07 AM CDT Fransisco Michel Jr., MD LAB MICROB IOLOGY - GENERAL ORDERABLES Edited Result - Final [facility] Department [place] [address] from Last 3 Months or Most Recently Relevant to Health Maintenance Insurance [employer] CON [facility] AETNA MEDICARE GOLD AETNA MEDICARE GOLD Advance Directives For more information, please contact: [phone] * Full Code (Latest Code Status on File) Date Activated Date Inactivated Comments 10/13/2017 2:44 AM 10/15/2017 1:51 PM Care Teams Tablet Technician Relationship Specialty Start Date End Date Lo Fong MD PCP - General 05/15/18 Lo Fong MD Family Practice 05/15/18 Fransisco Hart MD Referring Physician Neurology 10/15/17
--- OUTSIDE RECORDS SUMMARY | 2024-09-01 10:21 | XMS_ITS | Clinical Summary ---
Author Organization [facility] Address [address] [place] [address] Care Team Providers Care Securities Counselor Name Role Phone Lo Fong MD Primary Care Provider Lo Fong MD Unavailable [phone] Fransisco Hart MD Unavailable [phone] Allergies Active Allergy Reactions Criticality Noted Date [...] Description 07/30/2024 2:00 PM CDT Office Visit [facility] Cardiology [address] [place] [address] Kusum Fountain NP Elevated coronary artery calcium score (Primary Dx); Mixed hyperlipidemia; HTN (hypertension), benign 06/28/2024 Telephone [facility] Cardiology [address] [place] [address] Kusum Fountain NP from Last [...] Tovar Relation Name Status Comments Brother Zafar oTvar Father (Age 86) Mother She Tovar (Age [...] on file Legal Sex Male 9: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 ROLLER MAN Gender Identity Not on file Sexual Orientation Straight 03/05/2020 1: 49 PM ROLLER MAN Obstetrics History Last Filed Vital Signs Vital [...] 07/30/2024 1:59 PM CDT Plan of Treatment Health Maintenance Due Date Last Done Comments Fall Risk Assessment 1945 DTaP/Tdap/Td Vaccine (1 - Tdap) 11/15/1955 Hepatitis B Screening 1962 Abdominal Aortic Aneurysm (A AA) Screen 2009 Well Visit 65+ 2009 Pneumococcal vaccine 65+ (2 of 2 - PPSV23) 01/31/2016 12/06/2015 Depression Screening 10/12/2018 10/12/2017, 10/13/19 18 Influenza Vaccine (#1) 2024 9, 12/08/2017, 11/18/2016, Additional history exists Hepatitis C Screening Completed 10/13/2017 Zoster Vaccine Completed 12/20/2017, 07/02/2017 Procedures Procedure Name Priority Date/Time Associated Diagnosis Comments HEPATITIS PANEL, ACUTE Routine 10/13/2017 7:09 AM CDT from Last 3 Months or Most Recently Relevant to Health Maintenance Results * Hepatitis panel, acute (10/13/2017 7:09 AM CDT) Hep A IgM Nonreactive Nonreactive [facility] Comment: Interpretive Data If test is reported as GRAYZONE, new sample should be drawn in two weeks for testing. Current interpretive data was last revised on 2016. Hep B core IgM Nonreactive Nonreactive [facility] Comment: Interpretive Data If test is reported as GRAYZONE, new sample should be drawn for testing. Current interpretive data was last revised on 2016. Hep C Ab Nonreactive Nonreactive [facility] Comment: Interpretive Data Positive and greyzone results should be confirmed by a molecular method. If positive or greyzone, a second separately collected sample should be submitted for Hepatitis C Virus RNA. Detection and Quantitation by Real-Time Reverse Crusher Operator-PCR.Current Interpretive data was last revised on 2016. HepBsAg Nonreactive Nonreactive [facility] Blood specimen (specimen) 10/13/2017 7:09 AM CDT 10/13/2017 7:21 AM CDT [facility]ative [facility] - 10/13/2017 9:07 AM CDT us Fransisco Michel Jr., MD LAB MICROB IOLOGY - GENERAL ORDERABLES Edited Result - Final [facility] Department [place] [address] from Last 3 Months or Most Recently Relevant to Health Maintenance Insurance GOLD ADVANTAGE CON GOLD ADVANTAGE [facility] REF AETNA MEDICARE GOLD AETNA MEDICARE GOLD Advance Directives For more information, please contact: [phone] * Full Code (Latest Code Status on File) Date Activated Date Inactivated Comments 10/13/2017 2:44 AM 10/15/2017 1:51 PM Care Teams Securities Counselor Relationship Specialty Start Date End Date Lo Fong MD PCP - General 05/15/18 Lo Fong MD Family Practice 05/15/18 Fransisco Hart MD Referring Physician Neurology 10/15/17
--- OUTSIDE RECORDS SUMMARY | 2024-09-01 10:21 | XMS_ITS | Continuity of Care Document ---
Author Organization [facility] Address [address] [place] [address] [place] [address] Phone Care Team Providers Care Railroad Carman Name Role Phone Shana Hsu Unavailable Unavailable [...] Diagnoses Date Provider Providers Copied on Encounter [facility], [address] [place] [address] [address], [place], [place], [id number], [place] tel:[phone] [facility] No Information 0-201 0 Aracelis Saldana. [address] , [address], [place], [address], [place]. tel:[phone] [facility], [address] [place] [address] [address], [place], [place], [id number], [place] tel:[phone] [facility] No Information 9-201 0 Aracelis Amezquita [address] , [address], [place], [address], [place]. tel:[phone] Office/outpat ient Visit, [facility], [address], [place], [place], [id number], [place] tel:[phone] [facility] No Information 9-201 0 Aracelis Saldana. [address] , [address], [place], [address], [place]. tel:[phone] Referring Provider: Shana Angel, [address], [place], [place], [facility]. tel:[phone] Office/outpat ient Visit, [facility], [address] [place] [address] [address], [place], [place], [id number], [place] tel:[phone] [facility] No Information 8-201 0 Krishnasamy Jose. [facility] [address], [place], [place], [facility], [place]. tel:[phone] Office/outpat ient Visit, [facility], [address] [place] [address] [address], [place], [place], [id number], [place] tel:[phone] [facility] No Information Jul-3 0-201 0 Krishnasamy Jose. [facility], [place], [address], [place]. tel:[phone] Office/outpat ient Visit, [facility], [address] [place] [address] [address], [place], [place], [address], [place] tel:[phone] [facility] No Information 8-201 0 Krishnasamy Jose. [facility] [address], [place], [address], [place]. tel:[phone] [facility], [address] [place] [address] [address], [place], [place], [id number], [place] tel:[phone] [facility] No Information 7-200 8 Decker OD Pete. [address] , [address], [place], [address], [place]. tel:[phone] [facility], [address], [place], [place], [address], [place] tel:[phone] [facility] No Information 7-200 7 Decker OD Pete. [address] , [address], [place], [address], [place]. tel:[phone] Family History Family Member Type Diagnosis Age At Onset No Information Payers Payer name Insurance type Covered republican ID Authoriza tion(s) No Information Social History [...]
== END 2024-09-01 10:19 | disposition home or self-care (01) ==
PROVIDERS: PCP Family Medicine; Visit Provider Family Medicine
DX: R91.1 Solitary pulmonary nodule (principal)
CPT/HCPCS: 71250

== ENCOUNTER 2025-02-04 12:26 | Outpatient (CLI) | payer MEDICARE, SELFPAY ==
--- OUTSIDE RECORDS SUMMARY | 2025-02-04 12:41 | XMS_ITS | Clinical Summary ---
Author Organization [facility] Address [address] [address] Phone Care Team Providers Care Business Architect Name Role Phone Unavailable Primary Care Provider [...] Immunization (50+ years) (2 of 2 - PCV20 or PCV21) 12/05/2016 12/06/2015 Respiratory Syncytial Virus (RSV) Immunization (Adult) (1 - 1-dose 75+ series) 11/15/2019 Influenza Immunization (#1) 10/08/202410/08, 12/01/2018, 12/08/2017, Additional history exists SARS-COV-2 Immunization (2024- season) 2024 03/07/2021, 09/27/2020, 04/17/2020, Additional history exists Pneumococcal [...]
--- OUTSIDE RECORDS SUMMARY | 2025-02-04 12:41 | XMS_ITS | Clinical Summary ---
Author Organization [facility] Address [address] [place] [address] Care Team Providers Care Aerospace Engineer Name Role Phone Lo Fong MD Primary Care Provider Lo Fong MD Unavailable [phone] Fransisco Hart MD Unavailable [phone] Allergies Active Allergy Reactions Criticality Noted Date [...] (SYDNEY) 60 mg tablet 04/08/19 21 Active predniSONE (DELTASONE) 5 mg tablet Take 1 tablet (5 mg) by mouth continuously as needed 07/08/18 98 Active clopidogreL (PLAVIX) 75 mg tablet Take 1 tablet (75 mg total) by mouth daily 90 tablet 2 02/22/19 25 026 Active azelastine (ASTELIN) 137 mcg (0.1 %) nasal spray 05/08/19 25 Active omeprazole (PriLOSEC) 40 mg capsule Take by mouth daily 05/28/19 25 Active loteprednol (LOTEMAX) 0.5 % ophthalmic suspension INSTILL ONE DROP INTO BOTH EYES TWICE A DAY NEEDED 05/16/19 25 Active rosuvastatin (CRESTOR) 20 mg tabletIndications: Mixed hyperlipidemia TAKE 1 TABLET BY MOUTH EVERY DAY AT NIGHT 90 tablet 3 08/16/19 25 Active hydroCHLOROthiazid e 12.5 mg tablet TAKE 1 CAPSULE BY MOUTH EVERY DAY IN THE MORNING 90 tablet 3 09/18/19 25 Active losartan (COZAAR) 100 mg tablet TAKE 1 TABLET BY MOUTH DAILY 90 tablet 1 11/17/19 25 Active Active Problems Problem Noted Date Diagnosed [...] on file 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 Gender Identity Not on file Sexual Orientation Straight 03/05/2020 1: 49 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 Last Filed Vital Signs Vital Sign Reading [...] Pneumococcal vaccine 65+ (2 of 2 - PPSV23, PCV20, or PCV21) 01/31/2016 12/06/2015 Depression Screening 10/12/2018 10/12/2017, 10/13/19 18 Influenza Vaccine (#1) 2024 9, 12/08/2017, 11/18/2016, Additional history exists Zoster Vaccine Completed 12/20/2017, 07/02/2017 Insurance GOLD ADVANTAGE CON [facility] AETNA MEDICARE GOLD AETNA MEDICARE GOLD Advance Directives For more information, please contact: [phone] * Full Code (Latest Code Status on File) Date Activated Date Inactivated Comments 10/13/2017 2:44 AM 10/15/2017 1:51 PM Care Teams Aerospace Engineer Relationship Specialty Start Date End Date Lo Fong MD PCP - General 05/15/18 Lo Fong MD Family Practice 05/15/18 Farnsisco Hart MD Referring Physician Neurology 10/15/17
--- OUTSIDE RECORDS SUMMARY | 2025-02-04 12:41 | XMS_ITS | Patient Health Record ---
Author Organization [facility] Address [address] [place], [place] [id number] Care Team Providers Care Adjunct Trainer Name Role Phone CAROLINA CORNELL Unavailable [phone] Lo Fong Unavailable Unavaila ble Reason For Referral No Information Social History Social History Additional Details Category Social Info Options Details Migrated Social History Migrated Social History History of tobacco use : , Smoking Status : Former tobacco user Plan Of Treatment No Information Insurance Providers Payer Name Payer Address Payer Phone Subscriber Number Group Number Insured Name Patient Relationship to Insured Coverage Start Date Coverage End Date [employer] [address] [place] [phone] [id number] HOA LYONS Self - patient is the insured
--- OUTSIDE RECORDS SUMMARY | 2025-02-04 12:41 | XMS_ITS | Clinical Summary ---
Author Organization [facility] Address [address] [place] [address] Care Team Providers Care Compliance Specialist Name Role Phone Lo Fong MD Primary [...] 11/15/2019 INFLUENZA VACCINE (#1) 2024 Care Teams Compliance Specialist Relationship Specialty Start Date End Date Lo Fong MD [address] [place] [id number] PCP - General Family Practice 05/11/18
[2025-02-04 13:24] LABS: Toxigenic C. Diff NEGATIVE (NEGATIVE)
== END 2025-02-04 12:27 | disposition home or self-care (01) ==
PROVIDERS: PCP Family Medicine; Visit Provider Nurse Practitioner Family
DX: R19.7 Diarrhea, unspecified (principal)
CPT/HCPCS: 87493